=== PATIENT | female | born 1965 | race Caucasian/White ===

== ENCOUNTER 2021-09-11 13:50 | Emergency (ER) | payer SELFPAY ==
[~2021-09-11] VITALS: Ht 154.9 cm; Wt 86.4 kg
[2021-09-11 15:09] LABS: Urine Bacteria NONE SEEN /hpf (None Seen); Urine Blood 1+ /uL (Negative); Urine Mucus MODERATE (None Seen); Urine Specific Gravity 1.028 (1.001-1.035); Urine WBC 87 /hpf (0 - 5); Urine WBC Clumps PRESENT /hpf (None Seen)
[2021-09-11] MEDS ORDERED: KETOROLAC TROMETH 60MG/2ML VIAL IM ONE (16:00)
[2021-09-11] MEDS ORDERED: SULF400T11 PO (16:13)
[2021-09-11] MEDS ORDERED: PHEN200T16 PO (16:13)
[2021-09-11 16:15] VITALS: BP 140/78
== END 2021-09-11 16:20 | disposition home or self-care (01) ==
LOC: ER 13:50
DX: N39.0 Urinary tract infection, site not specified (principal); F17.210 Nicotine dependence, cigarettes, uncomplicated
CPT/HCPCS: 81001; 96372; 99283; J1885